=== PATIENT | male | born 1985 | race Caucasian/White ===

== ENCOUNTER 2019-03-19 11:59 | Day surgery (SDC) | payer OTHER ==
[2019-03-16 17:01] VITALS: BMI 24.3
[2019-03-19] MEDS ORDERED: PROPOFOL 20 ML ONE (13:27)
[2019-03-19] MEDS ORDERED: MIDAZOLAM HCL 2 MG/2 ML SINGLE DOSE VIAL ONE ×2 (13:27→13:47)
--- NOTE | 2019-03-19 14:46 | OP ---
Operative Note - Note: Operative Date: 03/19/19 Pre-Operative Diagnosis: Right renal stone Operation: Right ESWL Findings: 5 mm upper renal pole stone Post-Operative Diagnosis: Same as Pre-op Surgeon: Humphrey Avila Anesthesia: Fractional Estimated Blood Loss (mls): 0 Operative Report Dictated: Yes
[2019-03-19 15:50] VITALS: BP 126/75; PULSE 54; TEMP 98
--- NOTE | 2019-03-19 19:44 | OP ---
DATE OF OPERATION: 03/19/2019 PREOPERATIVE DIAGNOSIS: Right renal stone. POSTOPERATIVE DIAGNOSIS: Right renal stone. PROCEDURE: Right extracorporeal shock wave lithotripsy. ATTENDING: Remedios Newman MD ANESTHESIA: Fractional. DESCRIPTION OF OPERATION: The patient was brought in the operating room and placed in supine position on the operating room table. Ultrasonography and fluoroscopy were performed. A 5-mm right upper pole stone was noted. Shock wave lithotripsy was then performed. No complications were noted. The patient tolerated the procedure very well. The disposition of the patient was to the recovery room. REMEDIOS NEWMAN M.D. [id number]
== END 2019-03-19 15:50 | disposition home or self-care (01) ==
LOC: JASU-SURG 11:59
PROVIDERS: ATTEND Urology
PROC: 0TF3XZZ Fragmentation in Right Kidney Pelvis, External Approach (ICD-10-PCS; principal; 2019-03-19 13:15)
DX: N20.0 Calculus of kidney (principal)

== ENCOUNTER 2019-12-17 06:14 | Emergency (ER) | payer OTHER ==
[2019-12-17 06:42] VITALS: BP 112/73; PULSE 94; TEMP 98.9; BMI 27.9
[2019-12-17] MEDS ORDERED: SODIUM CHLORIDE 1,000 ML IV STA (08:14)
[2019-12-17] MEDS ORDERED: FAMOTIDINE 20 MG/50 ML IVPB 20 MG/50 ML MG IVPB ONE ×2 (08:14→08:43)
[2019-12-17] MEDS ORDERED: ACETAMINOPHEN 1000 MG/100 ML VIAL (NON FORMULARY) IVPB ONE (08:14)
[2019-12-17] MEDS ORDERED: MAG HYDROX/AL HYDROX/SIMETH 30 ML UNIT-DOSE CUP PO ONE (08:21)
[2019-12-17] MEDS ORDERED: ONDANSETRON 4 MG/2 ML VIAL IVPUSH ONE (08:21)
[2019-12-17] MEDS ORDERED: ACETAMINOPHEN INJECTION 100 ML IVPB ONE (08:42)
[2019-12-17] MEDS ORDERED: MAG HYDROX/AL HYDROX/SIMETH 30 ML UNIT-DOSE CUP ONE (08:43)
[2019-12-17] MEDS ORDERED: ONDANSETRON 4 MG/2 ML VIAL ONE (08:43)
[2019-12-17 09:27] LABS: BASO % 0.2 % (0-2.0); HEMATOCRIT 38.2 % (35.4-49); HEMOGLOBIN 12.9 GM/dL (11.7-16.9); LYMPH % 26.7 % (8-40); MCH 31.9 pg (25.7-33.7); MCHC 33.8 g/dl (32.0-35.9); MEAN CELL VOLUME 94.2 fl (80-96); MEAN PLT VOLUME 7.9 fl (7.5-11.1); MONO % 12.6 % (3.8-10.2); NEUT % 60.5 % (42.8-82.8); PLATELET COUNT 223 K/MM3 (134-434); RBC 4.05 M/mm3 (4.00-5.60)
[2019-12-17 10:15] LABS: ALBUMIN 3.1 g/dl (3.4-5.0); BILIRUBIN,TOTAL 0.7 mg/dL (0.2-1); BLOOD UREA NITROGEN 10.8 mg/dL (7-18); CALCIUM 8.4 mg/dL (8.5-10.1); CREATININE 0.7 mg/dL (0.55-1.3); POTASSIUM 4.3 mmol/L (3.5-5.1)
[2019-12-17 10:27] LABS: URINE APPEARANCE CLEAR; URINE BILIRUBIN 1+ (NEGATIVE); URINE COLOR DK YELLOW; URINE GLUCOSE (UA) NEGATIVE (NEGATIVE); URINE KETONE 15 mg/dl (NEGATIVE)
[2019-12-17 10:28] LABS: URINE NITRITE NEGATIVE (NEGATIVE); URINE PROTEIN 1+ (NEGATIVE)
[2019-12-17 10:29] LABS: EPI CELLS 47.7 /uL (0-25.1); HYALINE CASTS 12.33 /uL (0-3.1); URINE BACTERIA 1.9 /uL (0-1359); URINE LEUK ESTERASE NEGATIVE (NEGATIVE); URINE RBC 174.5 /uL (0-23.9); URINE WBC 7.9 /uL (0-25.8)
== END 2019-12-17 12:56 | disposition home or self-care (01) ==
LOC: JER 06:14
PROC: 3E033GC Introduction of Other Therapeutic Substance into Peripheral Vein, Percutaneous Approach (ICD-10-PCS; principal; 2019-12-17)
DX: R10.9 Unspecified abdominal pain (principal)
CPT/HCPCS: 36415; 71046-TC-FY; 80053; 81003; 83690; 85025; 99284-25; J0131

== ENCOUNTER 2020-07-24 14:16 | Emergency (ER) | payer OTHER ==
[2020-07-24 14:36] VITALS: BP 114/77; PULSE 94; TEMP 97.8; BMI 19.8
--- NOTE | 2020-07-24 14:58 | PDOC ---
History of Present Illness - General Chief Complaint: Scabies Stated Complaint: SKIN RASH Time Seen by Provider: 07/24/20 14:37 History Source: Patient Exam Limitations: No Limitations - History of Present Illness Initial Comments: 07/24/20 15:01 HISTORY OF PRESENT ILLNESS: 35-year-old male past medical history of recent scabies infection who presents emergency department for evaluation of rash worse on the upper extremities which has been presents starting approximately 3 days after scabies infection improved. Patient reports he was seen at [facility] MD was given permethrin for scabies and his symptoms improved for 3 days. Similar symptoms returned and patient was seen by his primary doctor who prescribed hydrocortisone cream and Benadryl. No recent travel or sick contacts. PAST MEDICAL HISTORY: Denies past medical history SURGICAL HISTORY: Denies ALLERGIES: No known drug allergies REVIEW OF SYSTEMS General/Constitutional: Denies fever or chills. Denies weakness, weight change. HEENT: Denies change in vision. Denies ear pain or discharge. Denies sore throat. Cardiovascular: Denies chest pain or shortness of breath. Respiratory: Denies cough, wheezing, or hemoptysis. Gastrointestinal: Denies nausea, vomiting, diarrhea or constipation. Denies rectal bleeding. Genitourinary: Denies dysuria, frequency, or change in urination. Musculoskeletal: Denies joint or muscle swelling or pain. Denies neck or back pain. Skin and breasts: See HPI Neurologic: Denies headache, vertigo, loss of consciousness, or loss of sensation. Psychiatric: Denies depression or anxiety. Endocrine: Denies increased thirst. Denies abnormal weight change. Hematologic/Lymphatic: Denies anemia, easy bleeding, or history of blood clots. Allergic/Immunologic: Denies hives or skin allergy. Denies latex allergy. PHYSICAL EXAM General Appearance: Well-appearing, appropriately dressed. No apparent distress, no intoxication. Musculoskeletal/Extremities: Tender lesions present to bilateral hands. FROM of all extremities, normal capillary refill. Integumentary: Tunneled lesions present to bilateral hands worse in the interdigital regions extending proximally on the dorsum of the hands and forearms. No erythema is present. Lesions are pruritic. Past History - Medical History Allergies/Adverse Reactions: Allergies Allergy/AdvReac Type Severity Reaction Status Date / Time No Known Allergies Allergy Verified 03/16/19 16:51 Home Medications: Ambulatory Orders Albuterol Sulfate Inhaler - [Ventolin HFA Inhaler -] 1 - 2 inh PO QID #1 inhaler 02/15/15 Tiotropium Victor [Spiriva -] 1 inh PO DAILY 08/16/15 Budesonide/Formeterol Fumarate [SYMBICORT 160/4.5mcg -] 1 inh PO BID 11/24/15 Oxycodone HCl/Acetaminophen [Oxycodone-Acetaminophen 5-325] 2 each PO Q6H PRN 11/24/15 Tamsulosin HCl [Flomax] 0.4 mg PO DAILY 03/16/19 Famotidine [Pepcid -] 20 mg PO DAILY #14 tablet 12/17/19 Ondansetron [Zofran -] 4 mg PO TID #21 tablet 12/17/19 Ivermectin 12 mg PO ONCE #4 tablet 07/24/20 Permethrin 5% Topical Cream [Elimite -] 1 applic TP ONCE #1 tube 07/24/20 Asthma: Yes COPD: Yes Diabetes: (pre diabetic no meds) Psychiatric Problems: Yes (anxiety) Thyroid Disease: Yes (hyper) - Immunization History Immunization Up to Date: Yes - Psycho-Social/Smoking History Smoking History: Current every day smoker Have you smoked in the past 12 months: No Number of Cigarettes Smoked Daily: 20 If you are a former smoker, when did you quit?: ABOUT A YEAR AGO Information on smoking cessation initiated: Yes 'Breaking Loose' booklet given: 09/15/16 - Substance Abuse Hx (Audit-C & DAST Scrn) How often the patient has a drink containing alcohol: Never Score: In Men: 4 or > Positive; In Women: 3 or > Positive: 0 Screen Result (Pos requires Nsg. Audit-10AR): Negative In the last yr the pt used illegal drug/Rx for NonMed reason: No Score: Yes response is considered Positive: 0 Screen Result (Positive result requires Nsg. DAST-10): Negative *Physical Exam - Vital Signs Last Vital Signs Temp Pulse Resp BP Pulse Ox 97.8 F 94 H 16 114/77 97 07/24/20 14:32 07/24/20 14:32 07/24/20 14:32 07/24/20 14:32 07/24/20 14:32 Medical Decision Making - Medical Decision Making 07/24/20 15:01 A/P: 35-year-old male with scabies infection As patient has already had a dose of permethrin which has been minimally effective I will represcribe permethrin and given new prescription for ivermectin to treat as an outpatient. Referral for dermatology has been provided. I discussed the physical exam findings, ancillary test results and final diagnoses with the patient. I answered all of the patient's questions. The patient was satisfied with the care received and felt comfortable with the discharge plan and treatment plan. The patient will call their primary care physician within 24 hours to arrange follow-up and will return to the Emergency Department with any new, persistent or worsening symptoms. Portions of this note have been documented using voice recognition software. As a result, errors may occur in the data modeling architect process. Effort has been made to correct all grammatical and data modeling architect error, but some may have been missed which may produce sporadic inaccurate data modeling architect or nonsensical phrases. Discharge - Discharge Information Problems reviewed: Yes Clinical Impression/Diagnosis: Scabies Condition: Stable Disposition: HOME - Admission No - Additional Discharge Information Prescriptions: Permethrin 5% Topical Cream [Elimite -] 1 applic TP ONCE #1 tube Ivermectin 12 mg PO ONCE #4 tablet - Follow up/Referral Referrals: Tanesha Angeles MD [Staff Physician] - - Patient Discharge Instructions Additional Instructions: You be given 2 prescriptions. One is ivermectin which should be taken as 12 mg daily. You were to repeat this dose in 1 week. The second medication is permethrin cream which is to be applied tonight after taking a hot shower. You need to leave this cream on for 14 hours before you repeat your shower. You are to repeat this in 14 days. It is important that you take all your clothing and bed linens and wash and scalding hot water to help prevent reinfection. 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 Call to schedule an appointment if symptoms do not improve in 3 days. Return to the emergency department for any new or worsening symptoms. Thank you very much for choosing us to provide your emergent health care needs. - Post Discharge Activity
--- OUTSIDE RECORDS SUMMARY | 2020-07-24 15:21 | XMS ---
:1985 Author Organization [facility] Care Team Providers Name Role Phone PALLI PARRISH K Unavailable Unavailable ED STAFF PHYSICIAN, STAFF Unavailable Unavailable Re-disclosure Warning The records that you are about to access may contain information from federally- assisted alcohol or drug abuse programs. If such information is present, then the following federally mandated warning applies: This information has been disclosed to you from records protected by federal confidentiality rules (42 CFR part 2). The federal rules prohibit you from making any further disclosure of this information unless further disclosure is expressly permitted by the written consent of the person to whom it pertains or as otherwise permitted by 42 CFR part 2. A general authorization for the release of medical or other information is NOT sufficient for this purpose. The Federal rules restrict any use of the information to criminally investigate or prosecute any alcohol or drug abuse patient.The records that you are about to access may contain highly sensitive health information, the redisclosure of which is protected by Article 27-F of the [facility] Public Health law. If you continue you may haveaccess to information: Regarding HIV / AIDS; Provided by facilities licensed or operated by the [facility] Office of Mental Health; or Provided by the [facility] Office for People With Developmental Disabilities. If such information is present, then the following [facility] mandated warning applies: This information has been disclosed to you from confidential records which are protected by state law. State law prohibits you from making any further disclosure of this information without the specific written consent of the person to whom it pertains, or as otherwise permitted by law. Any unauthorized further disclosure in violation of state law may result in a fine or skilled nursing sentence or both. A general authorization for the release of medical or other information is NOT sufficient authorization for further disclosure. Encounters Encounter Providers Location Date Indications Data Source(s ) Emergency Attender: OSCAR Ortiz 12/15/2019 [facility] KAttender: STAFF ED 09:43:00 [facility] STA[facility] - 12/15/2019 PHYSICIANAdmitter: 03:53:00 PM EDT OSCAR Li Patient discharged. Insurance Providers Payer name Policy type Policy ID Covered Covered constitution party's Policy P karla / Coverage constitution party ID relationship to [employer] ormation type [employer] [id number] SP [id number] AFFINITY O [id number] 01 [id number] HEALTH PLAN AFFINITY O [id number] HEALTH PLAN Problems, Conditions, and Diagnoses Code Display Name Description Problem Type Effective Data Sour ce(s) Dates F17.210 Nicotine NICOTINE Diagnosis 12/15/2019 [facility] dependence, DEPENDENCE, 09:43:[address] cigarettes, CIGARETTES, EDT uncomplicated UNCOMPLICATED J45.909 Unspecified UNSPECIFIED Diagnosis 12/15/2019 [facility], ASTHMA, 09:43:00 [facility] uncomplicated UNCOMPLICATED EDT R52 Pain, unspecified PAIN, UNSPECIFIED Diagnosis 12/15/2019 [facility] 09:43:00 AM [facility] EDT R05 Cough COUGH Diagnosis 12/15/2019 [facility] 09:43:00 AM [facility] EDT R50.9 Fever, unspecified FEVER, UNSPECIFIED Diagnosis 0 [facility] 09:43:00 AM [facility] Cent[facility] EDT Results ID Date Data Source [id number] 04/14/2020 12:12:00 PM EDT [facility] Name Value Range Interpretation Code Description Data Valery rce(s) Supporting Document(s ) COV2 [facility] This lab was ordered by BRITTANIE pierce nd reported by [facility]. ID Date Data Source [id number] 04/11/2020 12:00:00 PM EDT [facility] Name Value Range Interpretation Code Description Data Valery rce(s) Supporting Document(s ) SARS-CoV-2 [facility] , RNA This lab was ordered by PEDRO escobedo d reported by [facility]. ID Date Data Source [id number] 03/01/2020 02:37:00 PM EDT [facility] Name Value Range Interpretation Code Description Data Valery rce(s) Supporting Document(s ) COV2 [facility] This lab was ordered by BRITTANIE pierce nd reported by [employer] [facility]. ID Date Data Source [id number] 02/23/2020 03:18:00 PM EDT [facility] Name Value Range Interpretation Code Description Data Valery rce(s) Supporting Document(s ) COV2 [facility] This lab was ordered by BRITTANIE pierce nd reported by [facility]. Procedure Social History Code Duration Value Status Description Data Source(s ) Smoking 12/15/2019 02:28:00 Daily Smoker completed Daily Smoker [facility] EDT Center Smoking 12/15/2019 02:15:00 Daily Smoker completed Daily Smoker [facility] EDT Center Vital Signs ID Date Data Source UNK Name Value Range Interpretation Code Description Data Source(s) Body weight 65.499639 kg 65.959142 kg [facility] Body temperature 37.733291 37.769598 [facility] Respiratory rate 18 /min 18 /min [facility] Oxygen saturation 98 % 98 % [facility] in Arterial blood [facility] Center by Pulse oximetry Heart rate 85 /min 85 /min [facility] Body height 170.140090 170.779829 cm [facility] Diastolic blood 65 mm[Hg] 65 mm[Hg] [facility] pressure Medical Center Systolic blood 115 mm[Hg] 115 mm[Hg] [facility] Center Body mass index 22.7 kg/m2 22.7 kg/m2 [facility] (BMI) [Ratio] [facility]
== END 2020-07-24 15:12 | disposition home or self-care (01) ==
LOC: JERFT 14:16
DX: B86 Scabies (principal)
CPT/HCPCS: 99283-25

== ENCOUNTER 2020-10-14 10:31 | Emergency (ER) | payer OTHER ==
[2020-10-14 10:56] VITALS: BP 111/63; PULSE 88; TEMP 98.3; BMI 23.1
== END 2020-10-14 12:14 | disposition home or self-care (01) ==
LOC: JER 10:31
DX: J02.9 Acute pharyngitis, unspecified (principal)
CPT/HCPCS: 87070; 87880; 99283-25; C9803; U0003

== ENCOUNTER 2021-05-28 08:56 | Emergency (ER) | payer OTHER ==
[2021-05-28 09:09] VITALS: BP 137/80; PULSE 97; TEMP 98; BMI 22.7
[2021-05-28] MEDS ORDERED: FLUORESCEIN NA 1 EA STRIP OD ONE (09:29)
[2021-05-28] MEDS ORDERED: TETRACAINE 0.5% HCL 0.6ML DROPPER.BOTTLE OD ONE (09:29)
[2021-05-28] MEDS ORDERED: FLUORESCEIN NA 1 EA STRIP ONE (09:33)
== END 2021-05-28 09:55 | disposition home or self-care (01) ==
LOC: JER 08:56
DX: H57.89 Other specified disorders of eye and adnexa (principal)
CPT/HCPCS: 99283-25

== ENCOUNTER 2023-01-29 23:11 | Emergency (ER) | payer OTHER ==
[2023-01-29 23:28] VITALS: BP 128/88; PULSE 85; RESP 18; TEMP 98.4; BMI 22.7
[2023-01-30] MEDS ORDERED: FLUORESCEIN NA 1 EA STRIP OD ONE (01:05)
[2023-01-30] MEDS ORDERED: TETRACAINE 0.5% OPHTH SOLN 2 ML BOTTLE OD ONE (01:05)
[2023-01-30] MEDS ORDERED: FLUORESCEIN NA 1 EA STRIP ONE (01:10)
[2023-01-30] MEDS ORDERED: TETRACAINE 0.5% OPHTH SOLN 2 ML BOTTLE ONE (01:10)
[2023-01-30] MEDS ORDERED: ERYTHROMYCIN 0.5% OPHTHALMIC OINTMENT 3.5 GM TUBE OU ONE (03:00)
[2023-01-30] MEDS ORDERED: ERYTHROMYCIN 0.5% OPHTHALMIC OINTMENT 3.5 GM TUBE ONE (03:03)
== END 2023-01-30 03:46 | disposition home or self-care (01) ==
LOC: JER 23:11
DX: S05.91XA Unspecified injury of right eye and orbit, initial encounter (principal); S05.92XA Unspecified injury of left eye and orbit, initial encounter; H57.13 Ocular pain, bilateral; L56.8 Other specified acute skin changes due to ultraviolet radiation; W89.0XXA Exposure to welding light (arc), initial encounter
CPT/HCPCS: 82962; 99283-25

== ENCOUNTER 2023-10-31 04:26 | Day surgery (SDC) | payer OTHER ==
[2023-10-27 10:48] VITALS: BMI 18.0
[2023-10-31] MEDS ORDERED: ALBUTEROL SO4 HFA INHALER IH ONE (08:06)
[2023-10-31 09:30] VITALS: TEMP 98.4
[2023-10-31 09:42] VITALS: BP 105/61; PULSE 95; RESP 18
== END 2023-10-31 09:40 | disposition home or self-care (01) ==
LOC: JASU-ENDO 04:26
PROVIDERS: ATTEND Internal Medicine Gastroenterology
PROC: 0DB98ZX Excision of Duodenum, Via Natural or Artificial Opening Endoscopic, Diagnostic (ICD-10-PCS; 2023-10-31)
PROC: 0DB78ZX Excision of Stomach, Pylorus, Via Natural or Artificial Opening Endoscopic, Diagnostic (ICD-10-PCS; 2023-10-31)
PROC: 0DB68ZX Excision of Stomach, Via Natural or Artificial Opening Endoscopic, Diagnostic (ICD-10-PCS; 2023-10-31)
PROC: 0DJD8ZZ Inspection of Lower Intestinal Tract, Via Natural or Artificial Opening Endoscopic (ICD-10-PCS; principal; 2023-10-31 08:00)
DX: K29.50 Unspecified chronic gastritis without bleeding (principal); K64.8 Other hemorrhoids
CPT/HCPCS: 88305-TC; 88342-TC